=== PATIENT | female | born 2000 | race Caucasian/White ===

== ENCOUNTER 2024-12-07 02:12 | Emergency (ER) | payer OTHER ==
[2024-12-07 02:23] VITALS: BP 126/85; PULSE 118; RESP 26; TEMP 98.1; BMI 22.7
[2024-12-07] MEDS ORDERED: ALBUTEROL SO4 2.5/IPRATROPIUM 0.5 INH SOL 3 ML VIAL.NEB. NEB ONE (02:27)
[2024-12-07] MEDS: ALBUTEROL SO4 2.5/IPRATROPIUM 0.5 INH SOL 3 ML VIAL.NEB. NEB SCH (02:46)
== END 2024-12-07 04:00 | disposition home or self-care (01) ==
LOC: JER 02:12
PROC: 3E0F7GC Introduction of Other Therapeutic Substance into Respiratory Tract, Via Natural or Artificial Opening (ICD-10-PCS; principal; 2024-12-07)
DX: R05.9 Cough, unspecified (principal); J06.9 Acute upper respiratory infection, unspecified; R07.9 Chest pain, unspecified; R00.0 Tachycardia, unspecified; R06.2 Wheezing
CPT/HCPCS: 0241U-QW; 71046-TC-FY; 99284-25